=== PATIENT | male | born 1930 | race Caucasian/White ===

== ENCOUNTER → 2016-04-28 | Day surgery (SDC) | payer MEDICARE ==
[~2016-04-28] VITALS: Ht 172.7 cm; Wt 70.8 kg
[~2016-04-28] MED LIST: ALBU83IN INH; BICA50TA2 PO; BREO1INH3 INH; CALC600T21 PO; CIPR500T3 PO; CONRAY-60 60% 50ML VIAL (Q9961) As Ordered ONE; CONRAY-60 60% 50ML VIAL (Q9961) XX ONE; LIDOCAINE 2% INJ 100 MG/5 ML SDV (FOR ANES.) As Ordered ONE; METO25TAB PO; MIDAZOLAM INJ 2 MG/2 ML VIAL (J2250) As Ordered ONE; ONDANSETRON 4MG/2ML VIAL (J2405) As Ordered ONE; PROPOFOL 200 MG/20 ML VIAL As Ordered ONE; SIMV20TA2 PO; SYMB16INH INH; TYLE650T35 PO; ePHEDrine SULFATE 25 MG/5 ML(5MG/ML) SYRINGE As Ordered ONE; fentaNYL 100 MCG/2 ML INJECTION (J3010) As Ordered ONE
[2016-04-28 06:22] LABS: INR 0.92
--- NOTE | 2016-04-28 08:37 | REP ---
Retrograde pyelogram 04/28/2016 Indication: Hydronephrosis with ureteral stricture Comparison: Left retrograde pyelogram 12/31/2015 Findings: 1.8 minutes of c-arm fluoroscopy time was provided to Dr. Perez of Department of Urology for this procedure. On image 1 there is a double-J left ureteral stent which appears satisfactory in position. On image number 2 and 3 , a guide wire was placed through ureteral sten, and stent was removed. On image 4 and 5 subsequent left ureteral stent was placed again in satisfactory position. There are no visualized stones or debris seen along the course of the left ureter. Five images were recorded and are available for review on PACS Signed by Lamar Mcneil MD 04/28/2016 08:29 A
[2016-04-28 09:08] VITALS: BP 124/80
--- NOTE | 2016-04-29 09:21 | RO ---
DATE OF PROCEDURE: 04/28/2016 PREPROCEDURE DIAGNOSIS: Left hydronephrosis. POSTPROCEDURE DIAGNOSIS: Left hydronephrosis. PROCEDURE: Cystoscopy, plus left JJ stent exchange. SURGEON: Luis Perez MD TIRE BLADDER MAKER: None. ANESTHESIA: General. COMPLICATIONS: None. ESTIMATED BLOOD LOSS: N/A. 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 For this reason, he has consented for a cystoscopy plus left JJ stent exchange. He has signed a consent form. DESCRIPTION OF PROCEDURE: With the patient under general anesthesia in supine, modified, low lithotomy position, after prepping and draping the area of concern, which included the entire genitalia and abdomen, we introduced a cystoscope, #21 Turkmen, in diameter with a 30-degree lens. The urethra and bladder neck were totally normal. The bladder had no tumors, no stones. Good position left JJ stent. With endoscopic forceps, we grabbed the left JJ stent and passed a guidewire up to the left kidney, and then loaded a new JJ stent. Once it was in good position, we took the guidewire out and we could see a curl in the kidney and a curl in the bladder. We then emptied the bladder and took the cystoscope out. PLAN: The patient will followup at [facility] [place] in about 3 to 4 weeks. He will take antibiotic and Tylenol for pain. There were no complications during surgery.
== END | disposition home or self-care (01) ==
LOC: M SDC 05:30
PROVIDERS: ATTEND Urology
DX: N13.30 Unspecified hydronephrosis (principal); I10 Essential (primary) hypertension; E78.00 Pure hypercholesterolemia, unspecified; R29.898 Other symptoms and signs involving the musculoskeletal system; M12.9 Arthropathy, unspecified; J44.9 Chronic obstructive pulmonary disease, unspecified; C61 Malignant neoplasm of prostate; Z87.891 Personal history of nicotine dependence; Z88.7 Allergy status to serum and vaccine; Z79.899 Other long term (current) drug therapy; Z79.01 Long term (current) use of anticoagulants
CPT/HCPCS: 36415; 52332; 74420; 85610; 85730; C1726; C2617; J0690; J2250; J2405; J3010; Q9961

== ENCOUNTER → 2016-05-21 | Outpatient (REF) | payer MEDICARE ==
[~2016-05-21] MED LIST changes: -CONRAY-60 60% 50ML VIAL (Q9961) As Ordered ONE; -CONRAY-60 60% 50ML VIAL (Q9961) XX ONE; -LIDOCAINE 2% INJ 100 MG/5 ML SDV (FOR ANES.) As Ordered ONE; -MIDAZOLAM INJ 2 MG/2 ML VIAL (J2250) As Ordered ONE; -ONDANSETRON 4MG/2ML VIAL (J2405) As Ordered ONE; -PROPOFOL 200 MG/20 ML VIAL As Ordered ONE; -ePHEDrine SULFATE 25 MG/5 ML(5MG/ML) SYRINGE As Ordered ONE; -fentaNYL 100 MCG/2 ML INJECTION (J3010) As Ordered ONE
== END ==
LOC: M LAB REF 12:47
PROVIDERS: ATTEND Internal Medicine Medical Oncology
DX: C61 Malignant neoplasm of prostate (principal)

== ENCOUNTER → 2016-08-18 | Outpatient (REF) | payer MEDICARE | LOC: M LAB REF 16:51 | PROVIDERS: ATTEND Internal Medicine Medical Oncology | DX: C61 Malignant neoplasm of prostate (principal) ==

== ENCOUNTER → 2016-09-08 | Day surgery (SDC) | payer MEDICARE ==
[~2016-09-08] VITALS: Ht 172.7 cm; Wt 72.1 kg
[~2016-09-08] MED LIST changes: +ACETAMINOPHEN 650MG ER TAB (TYLENOL ARTHRITIS) PO SCH; +ALBU17IN INH; +CALCTAB7 PO; +CIPR250T3 PO; +CIPROFLOXACIN 250 MG TAB PO SCH; +CONRAY-60 60% 50ML VIAL (Q9961) As Ordered ONE; +LIDOCAINE 2% 5ML JELLY UROJET As Ordered ONE; +LIDOCAINE 2% INJ 100 MG/5 ML SDV (FOR ANES.) As Ordered ONE; +LR 1,000 ML IV ONE; +LR 1,000 ML IV SCH; +ONDANSETRON 4MG/2ML VIAL (J2405) As Ordered ONE; +ONDANSETRON 4MG/2ML VIAL (J2405) IV PRN; +PROPOFOL 200 MG/20 ML VIAL As Ordered ONE; +dexameTHASONE 4 MG/ML 1ML VIAL (J1100) As Ordered ONE; +fentaNYL 100 MCG/2 ML INJECTION (J3010) As Ordered ONE; +fentaNYL 100 MCG/2 ML INJECTION (J3010) IV PRN
--- NOTE | 2016-09-08 12:25 | REP ---
C-ARM VIEW ABDOMEN: C-arm view abdomen performed. Left ureteral stent is seen with the proximal end coiled in the left renal pelvis and the distal end coiled in the region of the urinary bladder. A small amount of contrast is seen in a partially opacified left pelvicalyceal system. 26 seconds fluoroscopy time utilized. Signed by Aleksander Clements MD 09/09/2016 07:04 P
[2016-09-08 13:05] VITALS: BP 128/84
--- NOTE | 2016-09-09 07:54 | RO ---
DATE OF PROCEDURE: 09/08/2016 PREOPERATIVE DIAGNOSIS: Left double J stent. POSTOPERATIVE DIAGNOSIS: Left double J stent. Left hydronephrosis due to prostate cancer. SURGERY PERFORMED: Cystoscopy, plus left retrograde pyelogram, plus double J stent exchange 6 British [place] Cook. SURGEON: Dr. Luis Perez HYDRAULICS ENGINEER: None. ANESTHESIA: General. COMPLICATIONS: None. ESTIMATED BLOOD LOSS: N/A. FINDINGS: Left double J stent, left hydronephrosis due to prostate cancer history. HISTORY OF PRESENT ILLNESS: 85-year-old male patient that has a history of prostate cancer and left hydronephrosis. The patient has a left double J stent in good position. He is due to a left double J stent exchange. For this reason, he has consented for a cystoscopy, plus left retrograde pyelogram, plus left double J stent exchange. PROCEDURE DESCRIPTION: In a patient under general anesthesia in supine modified low lithotomy position after prepping and draping the area of concern, which included the entire genitalia and abdomen, we introduced a #21 British cystoscope with a 30 degrees lens under video endoscopic guidance. The fossa navicularis, penile urethra, bulbar urethra and membranous urethra were totally normal. The prostatic urethra had lateral lobes, no middle lobes. The bladder had no tumors. There was a left double J stent in good position. With the endoscopic forceps, we grabbed the double J stent and took it out of the body of the patient. We then proceeded to actively put a Pollack 5 British into the left ureteral orifice and did a retrograde pyelogram. There was hydronephrosis on the left side. For this reason, we placed a guidewire through the Pollack catheter up through the kidney and took the Pollack catheter out and placed a new double J stent following the guidewire, 6 British [place] Cook stent. Once it was in good position, we took the guidewire out. We could actively see the curl in the kidney and the curl in the bladder. Then, we emptied the bladder and took the cystoscope out. PLAN: The patient will go home today with antibiotic and Tylenol for pain. He will followup at [facility] [place] in about 3 weeks.
== END | disposition home or self-care (01) ==
LOC: M SDC 08:16
PROVIDERS: ATTEND Urology
DX: N13.30 Unspecified hydronephrosis (principal); C61 Malignant neoplasm of prostate; C79.51 Secondary malignant neoplasm of bone; R35.0 Frequency of micturition; K40.90 Unilateral inguinal hernia, without obstruction or gangrene, not specified as recurrent; R97.20 Elevated prostate specific antigen [PSA]; I10 Essential (primary) hypertension; E78.00 Pure hypercholesterolemia, unspecified; D69.6 Thrombocytopenia, unspecified; N19 Unspecified kidney failure; M12.9 Arthropathy, unspecified; J44.9 Chronic obstructive pulmonary disease, unspecified; Z88.7 Allergy status to serum and vaccine; Z79.899 Other long term (current) drug therapy; Z79.82 Long term (current) use of aspirin; Z87.891 Personal history of nicotine dependence; Z87.442 Personal history of urinary calculi
CPT/HCPCS: 36415; 52332; 74420; 85730; C1726; C2617; J0690; J1100; J2405; J3010; Q9961

== ENCOUNTER → 2016-11-18 | Outpatient (REF) | payer MEDICARE ==
[~2016-11-18] MED LIST changes: -ACETAMINOPHEN 650MG ER TAB (TYLENOL ARTHRITIS) PO SCH; +BACT800T5 PO; -CALC600T21 PO; +CALC600T60 PO; -CIPROFLOXACIN 250 MG TAB PO SCH; -CONRAY-60 60% 50ML VIAL (Q9961) As Ordered ONE; -LIDOCAINE 2% 5ML JELLY UROJET As Ordered ONE; -LIDOCAINE 2% INJ 100 MG/5 ML SDV (FOR ANES.) As Ordered ONE; -LR 1,000 ML IV ONE; -LR 1,000 ML IV SCH; +METO25TA4 PO; -METO25TAB PO; -ONDANSETRON 4MG/2ML VIAL (J2405) As Ordered ONE; -ONDANSETRON 4MG/2ML VIAL (J2405) IV PRN; -PROPOFOL 200 MG/20 ML VIAL As Ordered ONE; -dexameTHASONE 4 MG/ML 1ML VIAL (J1100) As Ordered ONE; -fentaNYL 100 MCG/2 ML INJECTION (J3010) As Ordered ONE; -fentaNYL 100 MCG/2 ML INJECTION (J3010) IV PRN
== END ==
LOC: M LAB REF 16:58
PROVIDERS: ATTEND Internal Medicine Medical Oncology
DX: C50.929 Malignant neoplasm of unspecified site of unspecified male breast (principal)

== ENCOUNTER 2016-12-08 08:40 | Day surgery (SDC) | payer MEDICARE ==
[~2016-12-08] VITALS: Ht 172.7 cm; Wt 70.8 kg
[~2016-12-08 08:40] MED LIST changes: -BACT800T5 PO; +LIDOCAINE 2% INJ 100 MG/5 ML SDV (FOR ANES.) As Ordered ONE; +MIDAZOLAM INJ 2 MG/2 ML VIAL (J2250) As Ordered ONE; +PROPOFOL 200 MG/20 ML VIAL As Ordered ONE
[2016-12-08] MEDS ORDERED: fentaNYL 100 MCG/2 ML INJECTION (J3010) As Ordered ONE (08:46)
[2016-12-08] MEDS ORDERED: BACTRIM 160MG/800MG DS TAB PO SCH (09:00)
[2016-12-08] MEDS ORDERED: LR 1,000 ML IV ONE (09:00)
[2016-12-08] MEDS ORDERED: CONRAY-60 60% 50ML VIAL (Q9961) As Ordered ONE (11:58)
[2016-12-08] MEDS ORDERED: ePHEDrine SULFATE 25 MG/5 ML(5MG/ML) SYRINGE As Ordered ONE (12:47)
[2016-12-08] MEDS ORDERED: TYLE650T35 PO (12:56)
[2016-12-08] MEDS ORDERED: BACT800T5 PO (12:56)
[2016-12-08] MEDS ORDERED: ONDANSETRON 4MG/2ML VIAL (J2405) As Ordered ONE (13:04)
[2016-12-08] MEDS ORDERED: LR 1,000 ML IV SCH (13:30)
[2016-12-08] MEDS ORDERED: ACETAMINOPHEN 650MG ER TAB (TYLENOL ARTHRITIS) PO PRN (13:30)
[2016-12-08] MEDS ORDERED: fentaNYL 100 MCG/2 ML INJECTION (J3010) IV PRN (13:30)
--- NOTE | 2016-12-08 13:39 | REP ---
C-ARM VIEW ABDOMEN AND PELVIS: C-arm view of the abdomen and pelvis performed. A left ureteral stent is seen. Proximal end is coiled in the region of the left renal pelvis and the distal end is coiled in the region of the urinary bladder. 19 seconds of fluoroscopy time as utilized. Signed by Aleksander Clements MD 12/08/2016 04:41 P
[2016-12-08 14:50] VITALS: BP 138/63
--- NOTE | 2016-12-08 18:09 | RO ---
DATE OF PROCEDURE: 12/08/2016 PREOPERATIVE DIAGNOSIS: Left hydronephrosis and history of prostatic cancer. POSTOPERATIVE DIAGNOSIS: Left hydronephrosis and history of prostatic cancer. FINDINGS: Left double J stent in good position. Left hydronephrosis and history of prostatic cancer. SURGERY PERFORMED: Cystoscopy plus left double J stent exchange, #6-Vietnamese [place] Cook. SURGEON: Dr. Luis Perez WASTEWATER SUPERVISOR: None. ANESTHESIA: General. FINDINGS: Left kidney stone lower pole about 1 cm in diameter. COMPLICATIONS: None. ESTIMATED BLOOD LOSS: N/A. HISTORY OF PRESENT ILLNESS: This is an 86-year-old male patient with a history of prostatic cancer and left hydroureteronephrosis. The patient has a left double J stent in position. He has consented for a cystoscopy plus left double J stent exchange. PROCEDURE DESCRIPTION: In a patient under general anesthesia in supine modified low lithotomy position after prepping and draping the area of concern which included the entire genitalia and abdomen, we introduced a #21-Vietnamese cystoscopy with a 30 degree lens under videoscopic guidance. The fossa navicularis, penile urethra, bulbar urethra, membranous urethra and prostatic urethra were totally normal. The bladder had a left double J stent in good position. There were no tumors and no foreign objects otherwise and no bladder stones. We then grabbed the stent with biopsy forceps and pulled it out of the body of the patient. We then proceeded to pass a guidewire up to the kidney and pass a new double J stent up to the kidney. Once the stem was in good position we took the guidewire out. We could see the curl in the kidney and the curl in the bladder and then we emptied the bladder and took the cystoscope out. PLAN: The patient will go home with antibiotics and pain medication. He will followup [facility] in 2-3 weeks to reschedule stent exchange.
== END 2016-12-08 14:55 | disposition home or self-care (01) ==
LOC: M SDC 08:40
PROVIDERS: ATTEND Urology
DX: N13.30 Unspecified hydronephrosis (principal); C61 Malignant neoplasm of prostate; I10 Essential (primary) hypertension; D69.6 Thrombocytopenia, unspecified; E78.5 Hyperlipidemia, unspecified; R06.02 Shortness of breath; J44.9 Chronic obstructive pulmonary disease, unspecified; M12.9 Arthropathy, unspecified; I48.0 Paroxysmal atrial fibrillation; Z88.7 Allergy status to serum and vaccine; Z79.899 Other long term (current) drug therapy; Z79.82 Long term (current) use of aspirin
CPT/HCPCS: 52332; 74420; C1769; C2617; J0690; J2250; J2405; J3010; Q9961

== ENCOUNTER → 2017-02-18 | Outpatient (REF) | payer MEDICARE ==
[~2017-02-18] MED LIST changes: +BACT800T5 PO; -LIDOCAINE 2% INJ 100 MG/5 ML SDV (FOR ANES.) As Ordered ONE; -MIDAZOLAM INJ 2 MG/2 ML VIAL (J2250) As Ordered ONE; -PROPOFOL 200 MG/20 ML VIAL As Ordered ONE
== END ==
LOC: M LAB REF 13:37
PROVIDERS: ATTEND Internal Medicine Medical Oncology
DX: C61 Malignant neoplasm of prostate (principal)

== ENCOUNTER → 2017-03-29 | Day surgery (SDC) | payer MEDICARE ==
[~2017-03-29] VITALS: Ht 172.7 cm; Wt 69.9 kg
[~2017-03-29] MED LIST changes: +CONRAY-60 60% 50ML VIAL (Q9961) As Ordered ONE; +LIDOCAINE 2% 5ML JELLY UROJET As Ordered ONE; +LIDOCAINE 2% INJ 100 MG/5 ML SDV (FOR ANES.) As Ordered ONE; +LR 1,000 ML IV ONE; +LUPR45IN IM; +MIDAZOLAM INJ 2 MG/2 ML VIAL (J2250) As Ordered ONE; +PROPOFOL 200 MG/20 ML VIAL As Ordered ONE; +XGEVINJ SC; +[UNRECOGNIZED DRUG - OTHER]; +[UNRECOGNIZED DRUG - OTHER] INH; +[UNRECOGNIZED DRUG - REMARK]; +fentaNYL 100 MCG/2 ML INJECTION (J3010) As Ordered ONE
[2017-03-29 17:55] VITALS: BP 120/76
--- NOTE | 2017-03-30 16:07 | REP ---
C-ARM VIEW ABDOMEN: C-ARM view of the abdomen is performed. Left ureteral stent is visualized with the proximal end coiled in the region of the left kidney and the distal end coiled in the region of the urinary bladder. 5 seconds of fluoroscopy time utilized. Signed by Aleksander Clements MD 03/31/2017 08:24 P
--- NOTE | 2017-03-31 10:26 | RO ---
DATE OF PROCEDURE: 03/29/2017 PREPROCEDURE DIAGNOSIS: Prostate cancer and left hydronephrosis. POSTPROCEDURE DIAGNOSIS: Prostate cancer and left hydronephrosis. SURGERY PERFORMED: Cystoscopy plus left double J stent exchange, #6-[place]gent[place] Cook. SURGEON: Luis Perez MD NURSING ASSOC: None. ANESTHESIA: MAC. COMPLICATIONS: None. ESTIMATED BLOOD LOSS: N/A. HISTORY OF PRESENT ILLNESS: This is an 86-year-old male patient that has a left hydronephrosis and prostate cancer treated with hormone therapy, Xgeva, followed by oncology. He has a left double J stent in place due to left hydronephrosis and it is exchanged every 4 months. For this reason, he has consented for a cystoscopy plus left double J stent exchange, [place] Cook #6-Argentine. PROCEDURE DESCRIPTION: In a patient under MAC anesthesia in supine modified low lithotomy position after prepping and draping the area of concern, which included the entire genitalia, we started by introducing a #22-Argentine cystoscopy with a 30 degree lens under videoscopic guidance. The fossa navicularis, penile urethra, bulbar urethra, membranous urethra were totally normal. The prostate had lateral lobes touching. The bladder had no tumors, no stones, no foreign objects except for the left double J stent in good position. With endoscopic forceps we grabbed the left double J stent and took it out of the body of the patient. We then proceeded to pass a guidewire the left ureteral orifice and following the guidewire we placed a new double J stent, #6-[place] Cook. Once in good position, we took the guidewire out. We could see the curl in the kidney and the curl in the bladder. We then emptied the bladder and took the cystoscope out. PLAN: The patient will go home today with Tylenol extended release 150 mg one tablet by mouth every 8 hours and Ciprofloxacin 500 mg one tablet by mouth twice a day for 7 days. He will followup [facility] in 2-3 weeks to assess his prostate cancer and also we scheduled him for another double J stent exchange in 4 months.
== END | disposition home or self-care (01) ==
LOC: M SDC 13:42
PROVIDERS: ATTEND Urology
DX: N13.1 Hydronephrosis with ureteral stricture, not elsewhere classified (principal); C61 Malignant neoplasm of prostate; C79.51 Secondary malignant neoplasm of bone; I10 Essential (primary) hypertension; E78.00 Pure hypercholesterolemia, unspecified; D69.6 Thrombocytopenia, unspecified; N17.9 Acute kidney failure, unspecified; R35.0 Frequency of micturition; R06.02 Shortness of breath; M12.9 Arthropathy, unspecified; J44.9 Chronic obstructive pulmonary disease, unspecified; Z88.4 Allergy status to anesthetic agent; Z79.899 Other long term (current) drug therapy; Z79.82 Long term (current) use of aspirin
CPT/HCPCS: 52332; 74420; 96374; C1769; J0690; J2250; J3010; Q9961

== ENCOUNTER → 2017-05-16 | Outpatient (REF) | payer MEDICARE ==
[2017-05-16 13:59] LABS: PROSTATIC SPECIFIC AG MONITOR 1.85 NG/ML (< 4.0)
[2017-05-16 14:01] LABS: TESTOSTERONE 10 NG/DL (241-827)
== END ==
LOC: M LAB REF 13:13
DX: C61 Malignant neoplasm of prostate (principal)
CPT/HCPCS: 84403

== ENCOUNTER 2017-07-26 10:18 | Day surgery (SDC) | payer MEDICARE ==
[2017-07-26] MEDS ORDERED: LIDOCAINE 1% MDV 20ML VIAL SQ (10:30)
[2017-07-26] MEDS: LR 1,000 ML IV (11:00)
[2017-07-26] MEDS: CONRAY-60 60% 50ML VIAL (Q9961) As Ordered (12:31)
[2017-07-26] MEDS ORDERED: fentaNYL 100 MCG/2 ML INJECTION (J3010) As Ordered (12:44)
[2017-07-26] MEDS ORDERED: PROPOFOL 200 MG/20 ML VIAL As Ordered (12:44)
[2017-07-26] MEDS ORDERED: METOCLOPRAMIDE INJ 10MG/2ML VIAL (J2765) As Ordered (12:44)
[2017-07-26] MEDS ORDERED: MIDAZOLAM INJ 2 MG/2 ML VIAL (J2250) As Ordered (12:44)
[2017-07-26] MEDS ORDERED: ONDANSETRON 4MG/2ML VIAL (J2405) As Ordered (12:44)
[2017-07-26] MEDS ORDERED: LIDOCAINE 2% INJ 100 MG/5 ML SDV (FOR ANES.) As Ordered (12:44)
[2017-07-26] MEDS ORDERED: PHENYLephrine HCL 500 MCG/5 ML (100MCG/ML) SYRINGE (J2370) As Ordered (12:58)
[2017-07-26] MEDS ORDERED: ONDANSETRON 4MG/2ML VIAL (J2405) IV (14:15)
[2017-07-26] MEDS ORDERED: fentaNYL 100 MCG/2 ML INJECTION (J3010) IV (14:15)
[2017-07-26] MEDS ORDERED: LR 1,000 ML IV (14:15)
== END 2017-07-26 14:35 | disposition home or self-care (01) ==
LOC: M SDC 10:18
DX: N13.30 Unspecified hydronephrosis (principal); I48.0 Paroxysmal atrial fibrillation; I10 Essential (primary) hypertension; E78.5 Hyperlipidemia, unspecified; J44.9 Chronic obstructive pulmonary disease, unspecified; C61 Malignant neoplasm of prostate; Z79.899 Other long term (current) drug therapy
CPT/HCPCS: 52332

== ENCOUNTER → 2017-08-03 | Outpatient (REF) | payer MEDICARE ==
[2017-08-03 13:42] LABS: PROSTATIC SPECIFIC AG MONITOR 1.59 NG/ML (< 4.0)
[2017-08-03 13:44] LABS: TESTOSTERONE < 7 NG/DL (241-827)
== END ==
LOC: M LAB REF 12:55
DX: C61 Malignant neoplasm of prostate (principal)
CPT/HCPCS: 84403

== ENCOUNTER → 2017-11-02 | Outpatient (REF) | payer MEDICARE ==
[2017-11-02 19:50] LABS: PROSTATIC SPECIFIC AG MONITOR 1.08 NG/ML (< 4.0)
== END ==
LOC: M LAB REF 18:40
DX: C61 Malignant neoplasm of prostate (principal); C79.51 Secondary malignant neoplasm of bone
CPT/HCPCS: 84153

== ENCOUNTER 2017-11-24 08:29 | Day surgery (SDC) | payer MEDICARE ==
[~2017-11-24 08:29] MED LIST changes: -ALBU17IN INH; -ALBU83IN INH; -BACT800T5 PO; -BICA50TA2 PO; -BREO1INH3 INH; -CALC600T60 PO; -CALCTAB7 PO; -CIPR250T3 PO; -CIPR500T3 PO; -CONRAY-60 60% 50ML VIAL (Q9961) As Ordered ONE; -LIDOCAINE 2% 5ML JELLY UROJET As Ordered ONE; -LIDOCAINE 2% INJ 100 MG/5 ML SDV (FOR ANES.) As Ordered ONE; +LR 1,000 ML IV; -LR 1,000 ML IV ONE; -LUPR45IN IM; -METO25TA4 PO; -MIDAZOLAM INJ 2 MG/2 ML VIAL (J2250) As Ordered ONE; -PROPOFOL 200 MG/20 ML VIAL As Ordered ONE; -SIMV20TA2 PO; -SYMB16INH INH; -TYLE650T35 PO; -XGEVINJ SC; -[UNRECOGNIZED DRUG - OTHER]; -[UNRECOGNIZED DRUG - OTHER] INH; -[UNRECOGNIZED DRUG - REMARK]; -fentaNYL 100 MCG/2 ML INJECTION (J3010) As Ordered ONE
[2017-11-24 09:33] LABS: INR 1.08; PARTIAL THROMBOPLASTIN TIME 27.1 SECONDS (25.4-37.6); PROTHROMBIN TIME 14.2 SECONDS (12.1-14.4)
[2017-11-24] MEDS ORDERED: fentaNYL 100 MCG/2 ML INJECTION (J3010) As Ordered (09:38)
[2017-11-24] MEDS ORDERED: MIDAZOLAM INJ 2 MG/2 ML VIAL (J2250) As Ordered (09:39)
[2017-11-24] MEDS ORDERED: PROPOFOL 200 MG/20 ML VIAL As Ordered (09:40)
[2017-11-24] MEDS ORDERED: LIDOCAINE 2% INJ 100 MG/5 ML SDV (FOR ANES.) As Ordered (09:40)
[2017-11-24] MEDS: CONRAY-60 60% 50ML VIAL (Q9961) As Ordered (10:41)
[2017-11-24] MEDS ORDERED: ONDANSETRON 4MG/2ML VIAL (J2405) As Ordered (10:45)
[2017-11-24] MEDS ORDERED: dexameTHASONE 4 MG/ML 1ML VIAL (J1100) As Ordered (10:45)
[2017-11-24] MEDS ORDERED: ONDANSETRON 4MG/2ML VIAL (J2405) IV (11:15)
[2017-11-24] MEDS ORDERED: PERCOCET 5MG/325MG TAB PO (11:15)
[2017-11-24] MEDS ORDERED: HYDROMORPHONE HCL 0.5 MG/ 0.5 ML SYRINGE (J1170 PER 1) IV (11:15)
[2017-11-24] MEDS ORDERED: ACETAMINOPHEN 650MG ER TAB (TYLENOL ARTHRITIS) PO (11:15)
[2017-11-24] MEDS ORDERED: LR 1,000 ML IV (11:15)
[2017-11-24] MEDS ORDERED: fentaNYL 100 MCG/2 ML INJECTION (J3010) IV (11:15)
[2017-11-24] MEDS ORDERED: CIPROFLOXACIN 250 MG TAB PO (18:00)
== END 2017-11-24 12:30 | disposition home or self-care (01) ==
LOC: M SDC 08:29
DX: N13.30 Unspecified hydronephrosis (principal); Z88.7 Allergy status to serum and vaccine; Z79.899 Other long term (current) drug therapy; J44.9 Chronic obstructive pulmonary disease, unspecified; I10 Essential (primary) hypertension; Z86.79 Personal history of other diseases of the circulatory system
CPT/HCPCS: 52332

== ENCOUNTER → 2017-11-30 | Outpatient (REF) | payer MEDICARE ==
[2017-11-30 14:42] LABS: PROSTATIC SPECIFIC AG MONITOR 1.11 NG/ML (< 4.0)
== END ==
LOC: M LAB REF 13:28
DX: C61 Malignant neoplasm of prostate (principal); C79.51 Secondary malignant neoplasm of bone
CPT/HCPCS: 84153

== ENCOUNTER 2018-03-22 07:13 | Day surgery (SDC) | payer MEDICARE ==
[~2018-03-22 07:13] MED LIST changes: +LIDOCAINE 2% INJ 100 MG/5 ML SDV (FOR ANES.) As Ordered; -LR 1,000 ML IV; +MIDAZOLAM INJ 2 MG/2 ML VIAL (J2250) As Ordered; +ONDANSETRON 4MG/2ML VIAL (J2405) As Ordered; +PROPOFOL 200 MG/20 ML VIAL As Ordered; +fentaNYL 100 MCG/2 ML INJECTION (J3010) As Ordered
[2018-03-22 08:11] LABS: INR 0.96; PROTHROMBIN TIME 12.9 SECONDS (12.1-14.4)
[2018-03-22] MEDS: LR 1,000 ML IV (08:33)
[2018-03-22] MEDS: CONRAY-60 60% 50ML VIAL (Q9961) As Ordered (09:49)
[2018-03-22] MEDS: LIDOCAINE 2% 5ML JELLY UROJET As Ordered (10:01)
[2018-03-22] MEDS ORDERED: ePHEDrine SULFATE 25 MG/5 ML(5MG/ML) SYRINGE As Ordered (10:22)
[2018-03-22] MEDS ORDERED: PROPOFOL 200 MG/20 ML VIAL As Ordered (10:26)
[2018-03-22] MEDS ORDERED: LR 1,000 ML IV (11:30)
[2018-03-22] MEDS ORDERED: ACETAMINOPHEN TAB 650MG DOSE (2X325MG) PO (11:30)
[2018-03-22] MEDS ORDERED: ONDANSETRON 4MG/2ML VIAL (J2405) IV (11:30)
[2018-03-22] MEDS ORDERED: fentaNYL 100 MCG/2 ML INJECTION (J3010) IV (11:30)
== END 2018-03-22 14:21 | disposition home or self-care (01) ==
LOC: M SDC 07:13
DX: N13.1 Hydronephrosis with ureteral stricture, not elsewhere classified (principal); C61 Malignant neoplasm of prostate; I11.9 Hypertensive heart disease without heart failure; I48.0 Paroxysmal atrial fibrillation; R35.0 Frequency of micturition; J44.9 Chronic obstructive pulmonary disease, unspecified; E78.5 Hyperlipidemia, unspecified; I73.9 Peripheral vascular disease, unspecified; R29.898 Other symptoms and signs involving the musculoskeletal system; M12.9 Arthropathy, unspecified; Z88.7 Allergy status to serum and vaccine; Z79.899 Other long term (current) drug therapy; Z79.82 Long term (current) use of aspirin; Z87.891 Personal history of nicotine dependence
CPT/HCPCS: 52332

== ENCOUNTER 2018-07-19 08:45 | Day surgery (SDC) | payer MEDICARE ==
[~2018-07-19] VITALS: Ht 172.7 cm; Wt 63.5 kg
[~2018-07-19 08:45] MED LIST changes: +ACET1TAB55 PO; +ALBU17IN INH; +ALBU17IN2 INH; +ALBU83IN INH; +BACT800T5 PO; +BICA50TA9 PO; +BREO1INH3 INH; +CALC600T31 PO; +CALC600T60 PO; +CALCTAB7 PO; +CIPR100T4 PO; +CIPR250T3 PO; +CIPR500T3 PO; +FAMO40TA3 OR; +FLUC10TA PO; +IPRA0.00 IN; -LIDOCAINE 2% INJ 100 MG/5 ML SDV (FOR ANES.) As Ordered; +LUPR45IN IM; +METO1TAB32 PO; +METO25TA4 PO; -MIDAZOLAM INJ 2 MG/2 ML VIAL (J2250) As Ordered; -ONDANSETRON 4MG/2ML VIAL (J2405) As Ordered; -PROPOFOL 200 MG/20 ML VIAL As Ordered; +SIMV20TA2 PO; +SYMB16INH INH; +SYMB80INH INH; +TYLE650T35 PO; +XGEVINJ SC; +[UNRECOGNIZED DRUG - OTHER]; +[UNRECOGNIZED DRUG - OTHER] INH; +[UNRECOGNIZED DRUG - REMARK]; +antibiotic PO; -fentaNYL 100 MCG/2 ML INJECTION (J3010) As Ordered
[2018-07-19 09:26] LABS: INR 1.03; PROTHROMBIN TIME 13.6 SECONDS (12.1-14.4)
[2018-07-19] MEDS ORDERED: ceFAZolin 2 GM/D5W 50 ML IV BAG (J0690 PER 500MG) As Ordered ONE (09:36)
[2018-07-19] MEDS ORDERED: LIDOCAINE 2% INJ 100 MG/5 ML SDV (FOR ANES.) As Ordered ONE (10:15)
[2018-07-19] MEDS ORDERED: PROPOFOL 200 MG/20 ML VIAL As Ordered ONE (10:15)
[2018-07-19] MEDS ORDERED: ONDANSETRON 4MG/2ML VIAL (J2405) As Ordered ONE (10:15)
[2018-07-19] MEDS ORDERED: fentaNYL 100 MCG/2 ML INJECTION (J3010) As Ordered ONE (10:16)
[2018-07-19] MEDS ORDERED: MIDAZOLAM INJ 2 MG/2 ML VIAL (J2250) As Ordered ONE (10:16)
[2018-07-19] MEDS ORDERED: CONRAY-60 60% 50ML VIAL (Q9961) As Ordered ONE (10:24)
[2018-07-19] MEDS ORDERED: LIDOCAINE 2% 5ML JELLY UROJET As Ordered ONE (10:35)
[2018-07-19] MEDS ORDERED: dexameTHASONE 4 MG/ML 1ML VIAL (J1100) As Ordered ONE (11:17)
[2018-07-19] MEDS ORDERED: ePHEDrine SULFATE 25 MG/5 ML(5MG/ML) SYRINGE As Ordered ONE (11:22)
--- NOTE | 2018-07-19 11:49 | ROOPDOC ---
[facility] Report Of Operation Report of Operation DATE OF PROCEDURE: 07/19/18 PREPROCEDURE DIAGNOSIS: Left hydronephrosis. POSTPROCEDURE DIAGNOSIS: Left hydronephrosis. PROCEDURE: Cystoscopy, left ureteral stent exchange, left retrograde pyelogram with intraoperative interpretation of images. SURGEON: Dr. Mumtaz Arce GEOTECHNICIAN: None. ANESTHESIA: MAC. OPERATIVE INDICATIONS: This is an 87-year-old male with metastatic prostate cancer with invasion of the left trigone causing left hydroureteronephrosis. This is managed with chronic ureteral stenting and with a stent change every 4 months. He was brought to the operating room today for routine stent exchange. DESCRIPTION OF PROCEDURE: The patient was brought to the operating room where MAC anesthesia was administered. Prophylactic antibiotics were infused. He was then placed in dorsal lithotomy position and prepped and draped in the usual sterile fashion. At this point, a rigid cystoscope was inserted into the urethral meatus and advanced to the bladder. Once inside the bladder, the previously placed left ureteral stent was seen. A guidewire was advanced up the left collecting system alongside the stent. The stent was then removed intact. The wire was then utilized to advance an open ended ureteral catheter up the left collecting system. The wire was then removed and a retrograde pyelogram was performed and was notable for mild left hydronephrosis and no extravasation. I then advanced the wire back up the left collecting system and removed the open ureteral catheter. The wire was then utilized to advance a 7 Occitan x 22-32 cm JJ ureteral stent up into the left collecting system. The wire was then removed and there were adequate curls of the stent in the left renal pelvis and in the bladder. The bladder was then emptied of all fluid and this marked the conclusion of the procedure. The patient was then taken out of the dorsal lithotomy position, awakened from anesthesia and transported to the recovery room in stable condition. Estimated blood loss: 5 mL. Complications: None. Specimen: None. Plan: The patient will followup in the clinic in approximately three months to get him set up for his next stent exchange which will be 4 months from now. MUMTAZ ARCE MD Jul 19, 2018 11:48
[2018-07-19] MEDS ORDERED: ACETAMINOPHEN TAB 650MG DOSE (2X325MG) PO PRN (12:15)
[2018-07-19] MEDS ORDERED: ONDANSETRON 4MG/2ML VIAL (J2405) IV PRN (12:15)
[2018-07-19] MEDS ORDERED: PERCOCET 5MG/325MG TAB PO PRN (12:15)
[2018-07-19] MEDS ORDERED: LR 1,000 ML IV SCH (12:15)
[2018-07-19 12:26] VITALS: BP 128/60
--- NOTE | 2018-07-19 12:59 | REP ---
C-ARM VIEWS DURING LEFT URETERAL STENT EXCHANGE: Five C-arm views are performed. Wires placed in the left ureteral stent on the first image. Contrast is injected through the left ureteral stent. Left pelvicalyceal system is opacified showing no gross filling defect with similar appearance compared to the prior study of 03/22/2018. Left ureteral stent is positioned with the proximal end coiled in the left renal pelvis with the distal end in the urinary bladder. 23 seconds fluoroscopy time utilized. Electronically Signed by Aleksander Clements MD 07/19/2018 03:22 P
== END 2018-07-19 12:50 | disposition home or self-care (01) ==
LOC: M SDC 08:45
PROVIDERS: ATTEND Urology
DX: N13.30 Unspecified hydronephrosis (principal); I48.0 Paroxysmal atrial fibrillation; I10 Essential (primary) hypertension; K21.9 Gastro-esophageal reflux disease without esophagitis; E78.5 Hyperlipidemia, unspecified; J44.9 Chronic obstructive pulmonary disease, unspecified; Z88.7 Allergy status to serum and vaccine; Z79.899 Other long term (current) drug therapy; N18.9 Chronic kidney disease, unspecified; Z87.891 Personal history of nicotine dependence
CPT/HCPCS: 36415; 52332; 74420; 85610; C1769; C2617; J0690; J1100; J2250; J2405; J3010; Q9961

== ENCOUNTER → 2018-07-31 | Outpatient (REF) | payer MEDICARE | LOC: M LAB LCGH 09:08 | PROVIDERS: ATTEND Surgery | DX: C44.309 Unspecified malignant neoplasm of skin of other parts of face (principal) ==

== ENCOUNTER 2018-11-17 07:52 | Day surgery (SDC) | payer MEDICARE ==
[~2018-11-17] VITALS: Ht 172.7 cm; Wt 65.8 kg
[~2018-11-17 07:52] MED LIST changes: +LIDOCAINE 1% MDV 20ML VIAL SQ PRN; +LR 1,000 ML IV ONE; +SPIR1CAP INH
[2018-11-17] MEDS ORDERED: ONDANSETRON 4MG/2ML VIAL (J2405) As Ordered ONE (08:40)
[2018-11-17] MEDS ORDERED: dexameTHASONE 4 MG/ML 1ML VIAL (J1100) As Ordered ONE (08:40)
[2018-11-17] MEDS ORDERED: fentaNYL 100 MCG/2 ML INJECTION (J3010) As Ordered ONE (08:40)
[2018-11-17] MEDS ORDERED: PROPOFOL 200 MG/20 ML VIAL As Ordered ONE ×2 (08:40→09:18)
[2018-11-17] MEDS ORDERED: LIDOCAINE 2% INJ 100 MG/5 ML SDV (FOR ANES.) As Ordered ONE (08:40)
[2018-11-17] MEDS ORDERED: MIDAZOLAM INJ 2 MG/2 ML VIAL (J2250) As Ordered ONE (08:41)
[2018-11-17] MEDS ORDERED: CONRAY-60 60% 50ML VIAL (Q9961) As Ordered ONE (09:55)
[2018-11-17] MEDS ORDERED: LIDOCAINE 2% 5ML JELLY UROJET As Ordered ONE (09:55)
--- NOTE | 2018-11-17 11:02 | ROOPDOC ---
[facility] Report Of Operation Report of Operation DATE OF PROCEDURE: 11/17/18 PREPROCEDURE DIAGNOSIS: Left hydronephrosis. POSTPROCEDURE DIAGNOSIS: Left hydronephrosis. PROCEDURE: Cystoscopy, left ureteral stent exchange, left retrograde pyelogram with intraoperative interpretation of images. SURGEON: Dr. Mumtaz Arce ELECTRONIC CONTROLS REPAIRER SUPERVISOR: None. ANESTHESIA: MAC. OPERATIVE INDICATIONS: This is an 88-year-old male with metastatic prostate cancer with invasion of the left trigone causing left hydroureteronephrosis. This is managed with chronic ureteral stenting. He was brought to the operating room today for routine stent exchange. DESCRIPTION OF PROCEDURE: The patient was brought to the operating room where MAC anesthesia was administered. Prophylactic antibiotics were infused. He was then placed in dorsal lithotomy position and prepped and draped in the usual sterile fashion. At this point, a rigid cystoscope was inserted into the urethral meatus and advanced to the bladder. Once inside the bladder, the previously placed left ureteral stent was seen. A guidewire was advanced up the left collecting system alongside the stent. The stent was then removed intact. The wire was then utilized to advance advance the sheath for a Resonance stent up the left collecting system. The wire was then removed and a retrograde pyelogram was performed and was notable for mild left hydronephrosis and no extravasation. I then advanced a 6Fr x 24cm Resonance stent up the sheath and into the left collecting system using the pusher. The sheath was then withdrawn, leaving the stent in place with adequate curls in the left renal pelvis and the bladder. The bladder was then emptied of all fluid and this marked the conclusion of the procedure. The patient was then taken out of the dorsal lithotomy position, awakened from anesthesia and transported to the recovery room in stable condition. Estimated blood loss: 5 mL. Complications: None. Specimen: None. Plan: We will get a renal US every 3 months to check for hydronephrosis. As long as there is none, we will try to keep the stent in place and change it once per year. MUMTAZ ARCE MD Nov 17, 2018 11:02
[2018-11-17 11:10] VITALS: BP 103/57
[2018-11-17] MEDS ORDERED: fentaNYL 100 MCG/2 ML INJECTION (J3010) IV PRN (11:15)
[2018-11-17] MEDS ORDERED: ONDANSETRON 4MG/2ML VIAL (J2405) IV PRN (11:15)
[2018-11-17] MEDS ORDERED: MEPERIDINE INJ 25 MG/ML VIAL (J2175) IV PRN (11:15)
[2018-11-17] MEDS ORDERED: PERCOCET 5MG/325MG TAB PO PRN (11:15)
[2018-11-17] MEDS ORDERED: METOCLOPRAMIDE INJ 10MG/2ML VIAL (J2765) IV PRN (11:15)
[2018-11-17] MEDS ORDERED: LR 1,000 ML IV SCH (11:15)
--- NOTE | 2018-11-17 13:50 | REP ---
RETROGRADE PYELOGRAM: 11/17/2018. Clinical history: Left hydronephrosis. Findings: Three images from C-arm fluoroscopy provided to Dr. Acosta of the urology division are reviewed. Initial image shows contrast in the collecting system and a stent in the left ureter and collecting system. Second images show a double pigtail stent from the upper pole collecting system to the bladder on that left side. Third image shows collecting system filled with contrast but without abnormal distension or filling defect. Fluoroscopy time: 21 seconds. Electronically Signed by Rolf Vega MD 11/17/2018 01:58 P
== END 2018-11-17 12:50 | disposition home or self-care (01) ==
LOC: M SDC 07:52
PROVIDERS: ATTEND Urology
DX: N13.1 Hydronephrosis with ureteral stricture, not elsewhere classified (principal); R35.0 Frequency of micturition; C61 Malignant neoplasm of prostate; K21.9 Gastro-esophageal reflux disease without esophagitis; I12.9 Hypertensive chronic kidney disease with stage 1 through stage 4 chronic kidney disease, or unspecified chronic kidney disease; E78.00 Pure hypercholesterolemia, unspecified; D69.6 Thrombocytopenia, unspecified; N18.9 Chronic kidney disease, unspecified; J44.9 Chronic obstructive pulmonary disease, unspecified; Z79.82 Long term (current) use of aspirin; Z79.899 Other long term (current) drug therapy; Z79.51 Long term (current) use of inhaled steroids; Z87.891 Personal history of nicotine dependence
CPT/HCPCS: 52332; 74420; C1769; C2625; J0690; J1100; J2250; J2405; J3010; Q9961